=== PATIENT | male | born 1985 | race Caucasian/White ===

== ENCOUNTER 2019-01-13 13:27 | Emergency (ER) | payer MEDICAID | END 2019-01-13 15:40 | disposition home or self-care (01) | LOC: FTE 13:27 | DX: H61.21 Impacted cerumen, right ear (principal) | CPT/HCPCS: 69209; 99283-25 ==

== ENCOUNTER 2019-03-12 11:57 | Emergency (ER) | payer MEDICAID ==
[2019-03-12] MEDS: ONDANSETRON (ODT) 4 MG TAB ODT (12:38)
[2019-03-12] MEDS: FAMOTIDINE 20 MG TAB PO (12:38)
== END 2019-03-12 12:49 | disposition home or self-care (01) ==
LOC: FTE 11:57
DX: K29.00 Acute gastritis without bleeding (principal)
CPT/HCPCS: 99283; Z7502